=== PATIENT | male | born 1995 | race Caucasian/White ===

== ENCOUNTER → 2016-09-02 | Day surgery (SDC) | payer MEDICAID ==
[~2016-09-02] VITALS: Ht 165.1 cm; Wt 70.7 kg
[~2016-09-02] MED LIST: BACITRACIN TOP OINT 15 GM TUBE ONE; BUPIVACAINE HCL PF 0.25% 30 ML VIAL ONE; CEPH-459 PO; DO NOT ADM ANY ANTICOAGULANT DRUGS XX PRN; INSULIN HUMAN REGULAR 1,000 UNITS/10 ML VIAL SQ PRN; LACTATED RINGER'S 1000 ML INJ 1,000 ML IV ONE; LACTATED RINGER'S 1000 ML IV SCH; METOPROLOL TARTRATE 25 MG TAB PO PRN; MIDAZOLAM HCL 2 MG/2 ML VIAL ONE; ONDANSETRON HCL 4 MG/2 ML VIAL IV ONE; ONDANSETRON HCL 4 MG/2 ML VIAL IV PUSH PRN; PERC5TAB12 PO; PROPOFOL 200 MG/20 ML AMP IV ONE; SODIUM CHLORID 0.9% 500 ML IV SCH; ceFAZolin 1,000 MG/NS 100 ML IV SCH; ePHEDrine/NS 25 MG/5 ML SYR IV ONE; fentaNYL CITRATE 250 MCG/5 ML AMP ONE; oxyCODONE/ACETAMINOPHEN 5 MG/325 MG TAB PO PRN
[2016-09-02 10:14] LABS: MEAN CORPUSCULAR HGB CONC 36.3 % (32.0-36.0)
[2016-09-02 10:19] VITALS: BP 122/69; PULSE 53; RESP 20; TEMP 97.8; O2SAT 100
[2016-09-02 12:15] LABS: AUTOMATED NEUTROPHIL # 4.4 TH/MM3 (1.8-7.7); BASOPHIL % 0.6 % (0.0-2.0); EOSINOPHIL % 0.5 % (0.0-4.0); HEMATOCRIT 39.3 % (39.0-51.0); LYMPH % 26.1 % (9.0-44.0); LYMPHOCYTE # 1.8 TH/MM3 (1.0-4.8); MEAN CELL VOLUME 93.9 FL (80.0-100.0); MEAN CORPUSCULAR HEMOGLOBIN 34.1 PG (27.0-34.0); MONO % 7.9 % (0.0-8.0); NEUT % 64.9 % (16.0-70.0); PLATELET COUNT 206 TH/MM3 (150-450); RED BLOOD COUNT 4.19 MIL/MM3 (4.50-5.90); RED CELL DISTRIBUTION WIDTH 12.3 % (11.6-17.2); WHITE BLOOD COUNT 6.7 TH/MM3 (4.0-11.0)
[2016-09-02 12:17] LABS: HEMO FLAGS AUTO DIFF
--- NOTE | 2016-09-02 12:27 | HHI.PR ---
Immediate Post Op Note Procedure Date: Sep 02, 2016 Pre Op Diagnosis: (1) Undescended testicle Post Op Diagnosis: (1) Undescended testicle Surgeon: Taiwo Jiménez Retort Engineer(s): None Procedure: Left inguinal exploration and left inguinal orchiectomy Findings: Undescended atrophic left testicle Additional Information: Indication for procedure: 21-year-old male with left undescended testicle who presents today for left inguinal exploration, possible orchiopexy and possible orchiectomy. Procedure in detail: Patient was brought to the operating room suite and placed supine on the OR table. He was next placed under general anesthesia. He was then prepped and draped in normal sterile fashion. After appropriate timeout was undertaken I proceeded with making a small left inguinal incision with a # 15 blade incision was approximately 4 cm in length. The underlying tissue was sharply dissected to expose the external fascia. The external fascia was quite atrophic and was easily to expose the undescended testicle. The testicle itself was markedly atrophic and thus the decision was made to perform an orchiectomy. The testicle with portion of sporadic cord was divided ligated between large clamps and the specimen handed off. Careful inspection of the wound was made for the presence of active bleeding and none was noted. There was no evidence of a hernia sac. The wound was next irrigated and subsequently closed in 2 layers. The deep layer was closed with interrupted 4.0 plain sutures and the skin edges reapproximated in subcuticular fashion utilizing 4. 0 undyed Vicryl. A sterile dressing was placed over the wound site. Patient tolerated the procedures without complications and was transferred to the PACU in satisfactory condition. Complications: None Specimen(s) removed: Left testicle with portion of spermatic cord Estimated blood loss: Minimal Anesthesia: General Drains: None Fluids: refer to anesthesia record Patient to: PACU Patient Condition: Good Date/Time of Procedure: SEE SURGICAL CARE RECORD Taiwo Jiménez MD Sep 02, 2016 12:27
[2016-09-02 12:37] LABS: ANION GAP 9 MEQ/L (5-15); AST (GOT) 10 U/L (15-37); BICARBONATE 26.4 MEQ/L (21.0-32.0); BLOOD UREA NITROGEN 15 MG/DL (7-18); CHLORIDE 104 MEQ/L (98-107); GLOMERULAR FILTRATION RATE 133 ML/MIN (>89); POTASSIUM 3.8 MEQ/L (3.5-5.1); SODIUM (NA) 139 MEQ/L (136-145)
[2016-09-02 12:48] LABS: ALKALINE PHOSPHATASE 99 U/L (45-117); ALT (GPT) 19 U/L (12-78); TOTAL BILIRUBIN ADULT 0.4 MG/DL (0.2-1.0)
[2016-09-02 12:51] LABS: PLATELET ESTIMATE SMEAR NORMAL (NORMAL); PLATELET MORPHOLOGY NORMAL (NORMAL); SCAN/DIFF AUTO DIFF CONFIRMED
[2016-09-02 12:53] LABS: HDL CHOLESTEROL 37.1 MG/DL (40.0-60.0)
[2016-09-02 14:05] VITALS: BP 130/69; PULSE 72; RESP 18; TEMP 97.8; O2SAT 100
== END | disposition home or self-care (01) ==
LOC: HSDC 09:28
PROVIDERS: ATTEND Urology
DX: Q53.10 Unspecified undescended testicle, unilateral (principal)
CPT/HCPCS: 00920; 54520; 80053; 80061; 84443; 85025; 88305; J0690; J2250; J2405; J3010; J7120